=== PATIENT | female | born 1940 | race Caucasian/White ===

== ENCOUNTER 2016-10-17 17:22 | Emergency (ER) | payer MEDICARE ==
[~2016-10-17] VITALS: Ht 154.9 cm; Wt 77.3 kg
[~2016-10-17 17:22] MED LIST: ALTACE 10MG TAB10 MG PO; ALTACE10 MG PO; ANTIVERT 25MG25 MG PO; ARMOUR THYROID90 MG PO; ASPIRIN 32325 MG/TAB PO; BP MED; BYSTOLIC10 MG PO; KEPPRA 500MG500 MG PO; LEVEMIR100 U/ML SC; LIPITOR20 MG PO; LOPRESSOR 550 MG/TAB PO; NEXIUM 20MG CAP20 MG PO; NORCO 325 MG-51 TAB PO; NORVASC 10MG10 MG PO; [UNRECOGNIZED DRUG - OTHER]
[2016-10-17 17:36] VITALS: TEMP 99.2
[2016-10-17 18:45] LABS: BASO # 0.1 (0.0-0.2); BASO % 1.1 % (0.0-2.0); EOS # 0.4 (0.0-0.7); EOS % 3.9 % (0-4.0); GRAN # 5.6 (1.4-6.5); GRAN % 49.7 % (42.2-75.2); HEMATOCRIT 44.5 % (37.0-47.0); HEMOGLOBIN 15.2 g/dl (12.5-16.0); LYMPH % 35.4 % (20.0-51.0); MEAN CELL VOLUME 89 fl (80.0-100.0); MEAN CORPUSCULAR HEMOGLOBIN 31 pg (27.0-31.0); MEAN CORPUSCULAR HGB CONC 34 g/dl (33.0-37.0); MEAN PLATELET VOLUME 10.6 fl (7.4-10.4); MONO # 1.1 (0.1-0.6); MONO % 9.7 % (1.7-9.3); PLATELET COUNT 288 K/mm3 (130-400); RED BLOOD COUNT 4.98 M/mm3 (4.10-5.30); REDCELL DISTRIBUTION WIDTH-CV 14.1 % (11.5-14.5); WHITE BLOOD COUNT 11.2 K/mm3 (4.8-10.8)
[2016-10-17 18:49] LABS: ADJUSTED CALCIUM 9.3 mg/dL (8.4-10.2); ALBUMIN 3.8 gm/dL (3.5-5.0); BILIRUBIN,TOTAL 0.5 mg/dL (0.0-1.0); C-REACTIVE PROTEIN 1.2 mg/dL (0.0-0.9); CALCIUM 9.1 mg/dL (8.4-10.2); CREATININE, serum 0.58 mg/dL (0.52-1.25); POTASSIUM 3.6 mmol/L (3.4-5.0); TOTAL PROTEIN 7.3 gm/dL (6.4-8.2)
[2016-10-17 19:07] LABS: ERYTHROCYTE SEDIMENTATION RATE 4 mm/hr (0-30)
[2016-10-17 19:44] VITALS: BP 135/72; PULSE 80
== END 2016-10-17 19:45 | disposition home or self-care (01) ==
LOC: COL.ER 17:22
PROVIDERS: Emergency Medicine
DX: R51 Headache (principal); E11.9 Type 2 diabetes mellitus without complications; I10 Essential (primary) hypertension; Z86.73 Personal history of transient ischemic attack (TIA), and cerebral infarction without residual deficits; Z79.4 Long term (current) use of insulin

== ENCOUNTER 2017-08-31 11:06 | Inpatient (IN) | payer MEDICARE ==
[~2017-08-31] VITALS: Ht 154.9 cm; Wt 78.9 kg
[2017-08-31] MEDS ORDERED: GLUCOTROL10 MG PO (11:40)
[2017-08-31] MEDS ORDERED: ALTACE 10MG TAB10 MG PO (11:41)
[2017-08-31] MEDS ORDERED: ASPIRIN 81M81 MG/TA2 PO (11:42)
[2017-08-31 12:23] LABS: BASO # 0.1 (0.0-0.2); BASO % 0.6 % (0.0-2.0); GRAN # 5.9 (1.4-6.5); GRAN % 67.2 % (42.2-75.2); HEMATOCRIT 51.5 % (37.0-47.0); HEMOGLOBIN 17.4 g/dl (12.5-16.0); LYMPH # 1.5 (1.2-3.4); MEAN CELL VOLUME 89 fl (80.0-100.0); MEAN CORPUSCULAR HEMOGLOBIN 30 pg (27.0-31.0); MEAN CORPUSCULAR HGB CONC 34 g/dl (33.0-37.0); MEAN PLATELET VOLUME 10.5 fl (7.4-10.4); MONO # 1.3 (0.1-0.6); PLATELET COUNT 206 K/mm3 (130-400); RED BLOOD COUNT 5.76 M/mm3 (4.10-5.30); REDCELL DISTRIBUTION WIDTH-CV 14.4 % (11.5-14.5)
[2017-08-31 12:34] LABS: ALBUMIN 4.2 gm/dL (3.5-5.0); BILIRUBIN,TOTAL 0.5 mg/dL (0.0-1.0); CALCIUM 8.7 mg/dL (8.4-10.2); CREATININE, serum 0.7 mg/dL (0.52-1.25); POTASSIUM 3.9 mmol/L (3.4-5.0); TOTAL PROTEIN 7.8 gm/dL (6.4-8.2)
[2017-08-31 13:08] LABS: COLLECTION METHOD CATHETER
[2017-08-31 13:22] LABS: MUCOUS Present /lpf; PH 5 (5-8); SQUAMOUS EPITHELIAL 0-2 /hpf; URINE APPEARANCE Hazy; URINE BACTERIA Rare /hpf; URINE BILIRUBIN Negative (NEGATIVE); URINE BLOOD 1+ (NEGATIVE); URINE COLOR Yellow; URINE GLUCOSE 3+ (NEGATIVE); URINE KETONE 1+ (NEGATIVE); URINE LEUKOCYTE ESTERASE Trace (NEGATIVE); URINE NITRATE Negative (NEGATIVE); URINE PROTEIN(semi-quant) 1+ (NEGATIVE); URINE RBC 0-2 /hpf; URINE UROBILINOGEN Negative (NEGATIVE)
[2017-08-31 16:52] VITALS: BP 153/82; PULSE 84; TEMP 98.6
[2017-08-31] MEDS ORDERED: ARMOUR THYROID60 MG PO (19:34)
[2017-08-31 20:11] VITALS: BP 133/54; PULSE 85; TEMP 99.2
[2017-08-31 23:51] VITALS: BP 151/76; PULSE 88
[2017-09-01 04:17] VITALS: BP 137/62; PULSE 84; TEMP 98.5
[2017-09-01 06:28] LABS: BASO % 0.6 % (0.0-2.0); EOS % 0.2 % (0-4.0); GRAN # 2.6 (1.4-6.5); GRAN % 50.9 % (42.2-75.2); HEMATOCRIT 44.2 % (37.0-47.0); LYMPH # 1.8 (1.2-3.4); MEAN CELL VOLUME 90 fl (80.0-100.0); MEAN CORPUSCULAR HEMOGLOBIN 30 pg (27.0-31.0); MEAN CORPUSCULAR HGB CONC 33 g/dl (33.0-37.0); MEAN PLATELET VOLUME 10.7 fl (7.4-10.4); MONO # 0.7 (0.1-0.6); MONO % 14.1 % (1.7-9.3); PLATELET COUNT 203 K/mm3 (130-400); RED BLOOD COUNT 4.89 M/mm3 (4.10-5.30); REDCELL DISTRIBUTION WIDTH-CV 14.3 % (11.5-14.5)
[2017-09-01 06:32] LABS: HEMOGLOBIN 14.7 g/dl (12.5-16.0)
[2017-09-01 06:40] LABS: ALBUMIN 3.4 gm/dL (3.5-5.0); BILIRUBIN,TOTAL 0.2 mg/dL (0.0-1.0); CALCIUM 7.7 mg/dL (8.4-10.2); CREATININE, serum 0.59 mg/dL (0.52-1.25); POTASSIUM 3.2 mmol/L (3.4-5.0); TOTAL PROTEIN 6.5 gm/dL (6.4-8.2)
[2017-09-01 07:56] VITALS: BP 135/71; PULSE 86; TEMP 98.9
[2017-09-01 12:49] VITALS: BP 147/79; PULSE 87; TEMP 98.8
[2017-09-01 16:11] VITALS: BP 137/66; BP 146/93; BP 94/51; PULSE 94; PULSE 97; PULSE 98; TEMP 98.4; TEMP 98.8
[2017-09-01 20:00] VITALS: BP 156/88; PULSE 87; TEMP 98.9
[2017-09-02 00:30] VITALS: BP 144/66; PULSE 82; TEMP 97.9
[2017-09-02 03:58] VITALS: BP 146/75; PULSE 79; TEMP 98.4
[2017-09-02 07:52] VITALS: BP 136/70; PULSE 80; TEMP 99
[2017-09-02 07:53] LABS: BASO % 0.4 % (0.0-2.0); EOS % 0.4 % (0-4.0); GRAN # 1.6 (1.4-6.5); GRAN % 35.5 % (42.2-75.2); HEMATOCRIT 46.1 % (37.0-47.0); HEMOGLOBIN 15.5 g/dl (12.5-16.0); LYMPH # 2.4 (1.2-3.4); LYMPH % 52.8 % (20.0-51.0); MEAN CELL VOLUME 89 fl (80.0-100.0); MEAN CORPUSCULAR HEMOGLOBIN 30 pg (27.0-31.0); MEAN CORPUSCULAR HGB CONC 34 g/dl (33.0-37.0); MEAN PLATELET VOLUME 10.4 fl (7.4-10.4); MONO # 0.5 (0.1-0.6); MONO % 10.7 % (1.7-9.3); PLATELET COUNT 218 K/mm3 (130-400); RED BLOOD COUNT 5.17 M/mm3 (4.10-5.30); REDCELL DISTRIBUTION WIDTH-CV 14.4 % (11.5-14.5)
[2017-09-02 08:04] LABS: CALCIUM 7.6 mg/dL (8.4-10.2); CREATININE, serum 0.56 mg/dL (0.52-1.25); MAGNESIUM 2.1 mg/dL (1.6-2.3); POTASSIUM 3.5 mmol/L (3.4-5.0)
[2017-09-02] MEDS ORDERED: CEFTIN 250250 MG/TAB PO (08:47)
[2017-09-02] MEDS ORDERED: TAMIFLU30 MG PO (08:48)
[2017-09-02 10:39] VITALS: BP 141/77
[2017-09-02 10:40] VITALS: BP 141/77; PULSE 86; TEMP 101.8
== END 2017-09-02 16:40 | disposition home health service (06) | DRG 641 ==
LOC: COL.ER 11:06 → MEDICAL 14:28
PROVIDERS: Emergency Medicine; Internal Medicine; Nurse Practitioner Family
DX: E86.0 Dehydration (principal); N39.0 Urinary tract infection, site not specified; R19.7 Diarrhea, unspecified; E87.6 Hypokalemia; E83.42 Hypomagnesemia; J10.2 Influenza due to other identified influenza virus with gastrointestinal manifestations; E11.9 Type 2 diabetes mellitus without complications; G30.9 Alzheimer's disease, unspecified; F02.80 Dementia in other diseases classified elsewhere, unspecified severity, without behavioral disturbance, psychotic disturbance, mood disturbance, and anxiety; I10 Essential (primary) hypertension; Z79.4 Long term (current) use of insulin; Z86.73 Personal history of transient ischemic attack (TIA), and cerebral infarction without residual deficits
CPT/HCPCS: 99222-AI; 99232-AI; G8978-GP; G8979-GP; G8987-GO; G8988-GO; J0696; J1650; J1815; J3475; J3480; J7030

== ENCOUNTER 2017-09-26 12:13 | Emergency (ER) | payer MEDICARE ==
[~2017-09-26] VITALS: Ht 154.9 cm; Wt 77.3 kg
[~2017-09-26 12:13] MED LIST changes: +ARMOUR THYROID60 MG PO; +ASPIRIN 81M81 MG/TA2 PO; +CEFTIN 250250 MG/TAB PO; +GLUCOTROL10 MG PO; +TAMIFLU30 MG PO
[2017-09-26 12:17] VITALS: TEMP 98.5
[2017-09-26 13:03] LABS: BASO # 0.1 (0.0-0.2); BASO % 0.6 % (0.0-2.0); EOS # 0.2 (0.0-0.7); EOS % 1.2 % (0-4.0); GRAN # 8.9 (1.4-6.5); GRAN % 69.6 % (42.2-75.2); HEMATOCRIT 45.3 % (37.0-47.0); HEMOGLOBIN 15.4 g/dl (12.5-16.0); LYMPH # 2.5 (1.2-3.4); LYMPH % 19.3 % (20.0-51.0); MEAN CELL VOLUME 88 fl (80.0-100.0); MEAN CORPUSCULAR HEMOGLOBIN 30 pg (27.0-31.0); MEAN CORPUSCULAR HGB CONC 34 g/dl (33.0-37.0); MEAN PLATELET VOLUME 10.9 fl (7.4-10.4); MONO # 1.2 (0.1-0.6); MONO % 9.1 % (1.7-9.3); PLATELET COUNT 214 K/mm3 (130-400); RED BLOOD COUNT 5.13 M/mm3 (4.10-5.30); REDCELL DISTRIBUTION WIDTH-CV 13.7 % (11.5-14.5)
[2017-09-26 13:10] LABS: COLLECTION METHOD CATHETER
[2017-09-26 13:23] LABS: PH 5 (5-8); SQUAMOUS EPITHELIAL None Seen /hpf; URINE APPEARANCE Cloudy; URINE BACTERIA None Seen /hpf; URINE BILIRUBIN Negative (NEGATIVE); URINE BLOOD 2+ (NEGATIVE); URINE COLOR Red; URINE GLUCOSE 1+ (NEGATIVE); URINE KETONE Negative (NEGATIVE); URINE LEUKOCYTE ESTERASE Negative (NEGATIVE); URINE NITRATE Negative (NEGATIVE); URINE PROTEIN(semi-quant) 2+ (NEGATIVE); URINE RBC >50 /hpf; URINE UROBILINOGEN Negative (NEGATIVE)
[2017-09-26 13:27] LABS: ANION GAP 14 mmol/L (7-16); BLOOD UREA NITROGEN 18 mg/dL (7-17); CALCIUM 9.1 mg/dL (8.4-10.2); CARBON DIOXIDE 25 mmol/L (22-30); CHLORIDE 103 mmol/L (98-107); CREATININE, serum 0.61 mg/dL (0.52-1.25); GLUCOSE 245 mg/dL (74-106); POTASSIUM 3.4 mmol/L (3.4-5.0); SODIUM 142 mmol/L (137-145)
[2017-09-26 13:50] LABS: ALANINE AMINOTRANSFERASE 20 U/L (9-52); ALKALINE PHOSPHATASE 94 U/L (50-136); AST,SGOT 20 U/L (15-37)
[2017-09-26] MEDS ORDERED: CIPRO 250MG TA250 MG PO (16:19)
[2017-09-26 16:29] VITALS: BP 140/66; PULSE 66
== END 2017-09-26 16:29 | disposition home or self-care (01) ==
LOC: COL.ER 12:13
PROVIDERS: Nurse Practitioner
DX: R31.9 Hematuria, unspecified (principal); I10 Essential (primary) hypertension; E11.9 Type 2 diabetes mellitus without complications; G30.9 Alzheimer's disease, unspecified; Z86.73 Personal history of transient ischemic attack (TIA), and cerebral infarction without residual deficits; Z88.2 Allergy status to sulfonamides; Z79.4 Long term (current) use of insulin; Z79.82 Long term (current) use of aspirin
CPT/HCPCS: Q9967

== ENCOUNTER 2017-10-29 08:50 | Day surgery (SDC) | payer MEDICARE ==
[~2017-10-29] VITALS: Ht 154.9 cm; Wt 75.7 kg
[~2017-10-29 08:50] MED LIST changes: +CIPRO 250MG TA250 MG PO
[2017-10-29] MEDS ORDERED: GENTLE LAXATIVE10 MG RC (10:03)
[2017-10-29] MEDS ORDERED: JANUVIA50 MG PO (10:04)
[2017-10-29] MEDS ORDERED: IMODIUM 2MG CAPS2 MG PO (10:04)
[2017-10-29] MEDS ORDERED: LEVEMIR100 U/ML SQ (10:05)
[2017-10-29] MEDS ORDERED: LIPITOR20 MG PO (10:05)
[2017-10-29] MEDS ORDERED: LOPRESSOR 550 MG/TAB PO (10:05)
[2017-10-29] MEDS ORDERED: NORVASC 10MG10 MG PO (10:06)
[2017-10-29] MEDS ORDERED: MILK OF MA400 MG/52 PO (10:06)
[2017-10-29] MEDS ORDERED: TYLENOL 325MG325 MG PO (10:06)
[2017-10-29 10:12] VITALS: BP 143/77; PULSE 66; TEMP 98.2
[2017-10-29 13:50] VITALS: BP 147/60; PULSE 72; TEMP 97.5
[2017-10-29 14:05] VITALS: BP 130/60; PULSE 69
[2017-10-29 14:20] VITALS: BP 138/65; PULSE 74
[2017-10-29 14:35] VITALS: BP 138/68; PULSE 74
[2017-10-29 15:05] VITALS: BP 149/71; PULSE 80
== END 2017-10-29 15:20 | disposition home or self-care (01) ==
LOC: SDCO 08:50
DX: N30.91 Cystitis, unspecified with hematuria (principal); E11.9 Type 2 diabetes mellitus without complications; Z79.84 Long term (current) use of oral hypoglycemic drugs; I10 Essential (primary) hypertension; Z79.4 Long term (current) use of insulin; Z86.73 Personal history of transient ischemic attack (TIA), and cerebral infarction without residual deficits; E03.9 Hypothyroidism, unspecified; Z79.899 Other long term (current) drug therapy; Z88.1 Allergy status to other antibiotic agents; G30.9 Alzheimer's disease, unspecified; F02.80 Dementia in other diseases classified elsewhere, unspecified severity, without behavioral disturbance, psychotic disturbance, mood disturbance, and anxiety; Z79.82 Long term (current) use of aspirin
CPT/HCPCS: J0690; J1100; J1885; J2405; J2704; J2765; J3010; J7030

== ENCOUNTER 2018-09-05 21:11 | Emergency (ER) | payer MEDICARE, MEDICAID ==
[~2018-09-05] VITALS: Ht 154.9 cm; Wt 90.9 kg
[~2018-09-05 21:11] MED LIST changes: +GENTLE LAXATIVE10 MG RC; +IMODIUM 2MG CAPS2 MG PO; +JANUVIA50 MG PO; +LEVEMIR100 U/ML SQ; +MILK OF MA400 MG/52 PO; +TYLENOL 325MG325 MG PO
[2018-09-05 21:12] VITALS: TEMP 98.1
[2018-09-05 21:56] LABS: COLLECTION METHOD CATHETER
[2018-09-05 22:09] LABS: MUCOUS Present /lpf; PH 5 (5-8); URINE APPEARANCE Clear; URINE BACTERIA Rare /hpf; URINE BILIRUBIN Negative (NEGATIVE); URINE BLOOD Negative (NEGATIVE); URINE COLOR Yellow; URINE GLUCOSE 1+ (NEGATIVE); URINE KETONE Trace (NEGATIVE); URINE LEUKOCYTE ESTERASE Negative (NEGATIVE); URINE NITRATE Negative (NEGATIVE); URINE PROTEIN(semi-quant) 2+ (NEGATIVE); URINE UROBILINOGEN Negative (NEGATIVE)
[2018-09-05 23:26] LABS: HEMATOCRIT 47.2 % (37.0-47.0); HEMOGLOBIN 15.7 g/dl (12.5-16.0); MEAN CELL VOLUME 88 fl (80.0-100.0); MEAN CORPUSCULAR HEMOGLOBIN 29 pg (27.0-31.0); MEAN CORPUSCULAR HGB CONC 33 g/dl (33.0-37.0); MEAN PLATELET VOLUME 10.1 fl (7.4-10.4); PLATELET COUNT 310 K/mm3 (130-400); RED BLOOD COUNT 5.37 M/mm3 (4.10-5.30); REDCELL DISTRIBUTION WIDTH-CV 15.5 % (11.5-14.5)
[2018-09-05 23:39] LABS: ALANINE AMINOTRANSFERASE 21 U/L (9-52); ALBUMIN 3.3 gm/dL (3.5-5.0); ALKALINE PHOSPHATASE 108 U/L (50-136); ANION GAP 8 mmol/L (7-16); AST,SGOT 17 U/L (15-37); BILIRUBIN,TOTAL 0.6 mg/dL (0.0-1.0); BLOOD UREA NITROGEN 19 mg/dL (7-17); C-REACTIVE PROTEIN 1.2 mg/dL (0.0-0.9); CALCIUM 7.9 mg/dL (8.4-10.2); CARBON DIOXIDE 22 mmol/L (22-30); CHLORIDE 108 mmol/L (98-107); CREATININE, serum 0.52 mg/dL (0.52-1.25); GLUCOSE 237 mg/dL (74-106); LIPASE 64 U/L (23-300); POTASSIUM 3.8 mmol/L (3.4-5.0); SODIUM 138 mmol/L (137-145); TOTAL PROTEIN 6.6 gm/dL (6.4-8.2)
[2018-09-05 23:52] LABS: TROPONIN-I < 0.012 ng/mL (0.000-0.035)
[2018-09-06] MEDS ORDERED: ZOFRAN ODT8 MG PO (01:46)
[2018-09-06 01:55] VITALS: BP 160/85; PULSE 87
[2018-09-06 05:52] LABS: BAND 18 % (0-10); BASOPHIL 1 % (0-2); EOSINOPHIL 1 % (0-4); LYMPHOCYTE 6 % (20.0-51.0); NEUTROPHILS 70 % (42.0-75.2); PLATELET ESTIMATE NORMAL (NORMAL)
[2018-09-06 05:53] LABS: ANISOCYTOSIS 1+; HYPOCHROMIA 1+
== END 2018-09-06 03:05 | disposition home or self-care (01) ==
LOC: COL.ER 21:11
PROVIDERS: Emergency Medicine
DX: R10.31 Right lower quadrant pain (principal); R10.32 Left lower quadrant pain; R11.2 Nausea with vomiting, unspecified; E11.9 Type 2 diabetes mellitus without complications; I10 Essential (primary) hypertension; E03.9 Hypothyroidism, unspecified; G40.909 Epilepsy, unspecified, not intractable, without status epilepticus; Z79.82 Long term (current) use of aspirin; Z79.4 Long term (current) use of insulin; Z86.73 Personal history of transient ischemic attack (TIA), and cerebral infarction without residual deficits
CPT/HCPCS: J2405; J3010; J7030; Q9967

== ENCOUNTER → 2019-05-05 | Outpatient (CLI) | payer MEDICARE, MEDICAID ==
[~2019-05-05] MED LIST changes: +ZOFRAN ODT8 MG PO
[2019-05-05 12:14] LABS: CALCIUM 9.5 mg/dL (8.4-10.2); CHOLESTEROL RISK RATIO 5.3; CREATININE, serum 0.82 (0.52-1.25); POTASSIUM 3.7 mmol/L (3.4-5.0)
[2019-05-05 12:45] LABS: THYROID STIMULATING HORMONE 0.449 uIU/mL (0.465-4.680)
== END ==
LOC: COL.LAB 11:06
PROVIDERS: Internal Medicine
DX: I10 Essential (primary) hypertension (principal); E78.2 Mixed hyperlipidemia; E03.9 Hypothyroidism, unspecified

== ENCOUNTER → 2020-02-04 | Outpatient (CLI) | payer MEDICARE, MEDICAID ==
[2020-02-04 13:08] LABS: BASO # 0.1 (0.0-0.2); BASO % 0.9 % (0.0-2.0); EOS # 0.3 (0.0-0.7); EOS % 2.5 % (0-4.0); GRAN # 7.7 (1.4-6.5); HEMATOCRIT 39.6 % (37.0-47.0); HEMOGLOBIN 13.1 g/dl (12.5-16.0); LYMPH # 1.7 (1.2-3.4); LYMPH % 16.1 % (20.0-51.0); MEAN CELL VOLUME 91 fl (80.0-100.0); MEAN CORPUSCULAR HEMOGLOBIN 30 pg (27.0-31.0); MEAN CORPUSCULAR HGB CONC 33 g/dl (33.0-37.0); MEAN PLATELET VOLUME 12.2 fl (7.4-10.4); MONO # 0.7 (0.1-0.6); MONO % 6.8 % (1.7-9.3); PLATELET COUNT 246 K/mm3 (130-400); RED BLOOD COUNT 4.37 M/mm3 (4.10-5.30); REDCELL DISTRIBUTION WIDTH-CV 14.9 % (11.5-14.5)
[2020-02-04 13:14] LABS: ANION GAP 11 mmol/L (7-16); BLOOD UREA NITROGEN 47 mg/dL (7-17); CALCIUM 8.8 mg/dL (8.4-10.2); CARBON DIOXIDE 26 mmol/L (22-30); CHLORIDE 97 mmol/L (98-107); GLUCOSE 190 mg/dL (74-106); SODIUM 134 mmol/L (137-145)
[2020-02-04 13:28] LABS: TROPONIN-I < 0.012 ng/mL (0.000-0.035)
[2020-02-04 13:33] LABS: ERYTHROCYTE SEDIMENTATION RATE 34 mm/hr (0-30)
[2020-02-04 22:17] LABS: COLLECTION METHOD CLEAN CATCH
[2020-02-04 22:24] LABS: MUCOUS Present /lpf; PH 5 (5-8); URINE APPEARANCE Cloudy; URINE BACTERIA Rare /hpf; URINE BILIRUBIN Negative (NEGATIVE); URINE BLOOD Negative (NEGATIVE); URINE COLOR Amber; URINE GLUCOSE Negative (NEGATIVE); URINE KETONE Negative (NEGATIVE); URINE LEUKOCYTE ESTERASE 1+ (NEGATIVE); URINE NITRATE Negative (NEGATIVE); URINE PROTEIN(semi-quant) Negative (NEGATIVE); URINE UROBILINOGEN Negative (NEGATIVE)
== END ==
LOC: ZCOL.LAB 10:35
PROVIDERS: Nurse Practitioner Family
DX: I10 Essential (primary) hypertension (principal); N39.0 Urinary tract infection, site not specified

== ENCOUNTER 2020-02-06 19:31 | Emergency (ER) | payer MEDICARE, MEDICAID ==
[~2020-02-06] VITALS: Ht 152.4 cm; Wt 84.1 kg
[2020-02-06 19:41] VITALS: TEMP 98.2
[2020-02-06 21:14] VITALS: BP 95/60; PULSE 71
== END 2020-02-06 21:14 | disposition home or self-care (01) ==
LOC: COL.ER 19:31
DX: S63.651A Sprain of metacarpophalangeal joint of left index finger, initial encounter (principal); E11.9 Type 2 diabetes mellitus without complications; I10 Essential (primary) hypertension; Z79.82 Long term (current) use of aspirin; Z79.4 Long term (current) use of insulin; Z86.73 Personal history of transient ischemic attack (TIA), and cerebral infarction without residual deficits; Z88.1 Allergy status to other antibiotic agents; Z88.2 Allergy status to sulfonamides; X58.XXXA Exposure to other specified factors, initial encounter

== ENCOUNTER → 2020-02-07 | Outpatient (CLI) | payer MEDICARE, MEDICAID ==
[2020-02-07 12:14] LABS: BASO # 0.1 (0.0-0.2); EOS # 0.5 (0.0-0.7); EOS % 5.2 % (0-4.0); GRAN # 6.9 (1.4-6.5); GRAN % 67.1 % (42.2-75.2); HEMATOCRIT 37.7 % (37.0-47.0); HEMOGLOBIN 12.6 g/dl (12.5-16.0); LYMPH # 1.8 (1.2-3.4); LYMPH % 17.3 % (20.0-51.0); MEAN CELL VOLUME 91 fl (80.0-100.0); MEAN CORPUSCULAR HEMOGLOBIN 30 pg (27.0-31.0); MEAN CORPUSCULAR HGB CONC 33 g/dl (33.0-37.0); MEAN PLATELET VOLUME 11.1 fl (7.4-10.4); MONO # 0.9 (0.1-0.6); MONO % 8.9 % (1.7-9.3); PLATELET COUNT 313 K/mm3 (130-400); RED BLOOD COUNT 4.15 M/mm3 (4.10-5.30); REDCELL DISTRIBUTION WIDTH-CV 14.8 % (11.5-14.5)
[2020-02-07 12:21] LABS: ALBUMIN 3.2 gm/dL (3.5-5.0); BILIRUBIN,TOTAL 0.6 mg/dL (0.0-1.0); CALCIUM 8.7 mg/dL (8.4-10.2); CREATININE, serum 1.86 (0.52-1.25); POTASSIUM 3.4 mmol/L (3.4-5.0); TOTAL PROTEIN 6.4 gm/dL (6.4-8.2)
== END ==
LOC: ZCOL.LAB 11:47
PROVIDERS: Internal Medicine
DX: E11.59 Type 2 diabetes mellitus with other circulatory complications (principal); I10 Essential (primary) hypertension

== ENCOUNTER → 2020-04-01 | Outpatient (CLI) | payer MEDICARE, MEDICAID | LOC: ZCOL.LAB 20:43 | DX: E11.59 Type 2 diabetes mellitus with other circulatory complications (principal) ==

== ENCOUNTER → 2020-05-02 | Outpatient (CLI) | payer MEDICARE, MEDICAID ==
[2020-05-02 09:47] LABS: CHOLESTEROL RISK RATIO 4.1
[2020-05-02 10:18] LABS: THYROID STIMULATING HORMONE 1.05 uIU/mL (0.465-4.680)
== END ==
LOC: ZCOL.LAB 07:45
PROVIDERS: Internal Medicine
DX: E11.59 Type 2 diabetes mellitus with other circulatory complications (principal); E03.9 Hypothyroidism, unspecified

== ENCOUNTER → 2020-05-30 | Outpatient (CLI) | payer MEDICARE, MEDICAID ==
[2020-05-30 19:05] LABS: COLLECTION METHOD CLEAN CATCH
[2020-05-30 19:19] LABS: PH 7 (5-8); SQUAMOUS EPITHELIAL 0-2 /hpf; URINE APPEARANCE Cloudy; URINE BACTERIA Occasional /hpf; URINE BILIRUBIN Negative (NEGATIVE); URINE BLOOD 3+ (NEGATIVE); URINE COLOR Yellow; URINE GLUCOSE Negative (NEGATIVE); URINE KETONE Negative (NEGATIVE); URINE LEUKOCYTE ESTERASE 3+ (NEGATIVE); URINE NITRATE Negative (NEGATIVE); URINE PROTEIN(semi-quant) 2+ (NEGATIVE); URINE RBC >50 /hpf; URINE UROBILINOGEN Negative (NEGATIVE); URINE WBC >50 /hpf
== END ==
LOC: ZCOL.LAB 18:54
PROVIDERS: Nurse Practitioner Family
DX: N39.0 Urinary tract infection, site not specified (principal)

== ENCOUNTER → 2021-11-19 | Outpatient (CLI) | payer MEDICARE, MEDICAID | LOC: MC.RAD 10:49 | DX: N64.59 Other signs and symptoms in breast (principal); N63.11 Unspecified lump in the right breast, upper outer quadrant ==

== ENCOUNTER → 2021-11-28 | Outpatient (CLI) | payer MEDICARE, MEDICAID | LOC: MC.RAD 09:56 | DX: N63.11 Unspecified lump in the right breast, upper outer quadrant (principal) | CPT/HCPCS: A4648 ==

== ENCOUNTER → 2021-12-20 | Outpatient (CLI) | payer MEDICARE, MEDICAID | LOC: COL.RAD 12:56 | DX: C50.411 Malignant neoplasm of upper-outer quadrant of right female breast (principal); K57.30 Diverticulosis of large intestine without perforation or abscess without bleeding; K44.9 Diaphragmatic hernia without obstruction or gangrene | CPT/HCPCS: Q9967 ==

== ENCOUNTER 2022-01-15 06:42 | Day surgery (SDC) | payer MEDICARE, MEDICAID ==
[2022-01-15] VITALS (10 sets, daily range): BP systolic 115–169; BP diastolic 44–69; PULSE 60–78; TEMP 97.3–98.5
[~2022-01-15] VITALS: Ht 184 cm; Wt 83.7 kg
[2022-01-15] MEDS ORDERED: ZYLOPRIM 300MG300 MG PO (08:14)
[2022-01-15] MEDS ORDERED: EMERGEN-C 1,01000 MG PO (08:15)
[2022-01-15] MEDS ORDERED: LEVEMIR100 U/ML SQ (08:16)
[2022-01-15] MEDS ORDERED: TIROSINT50 MC1 PO (08:17)
[2022-01-15] MEDS ORDERED: NOVOLIN N100 UNIT/1 SQ (08:18)
[2022-01-15] MEDS ORDERED: ALTACE 10MG TAB10 MG PO (08:19)
[2022-01-15] MEDS ORDERED: ZOLOFT 25MG25 MG PO (08:20)
[2022-01-15] MEDS ORDERED: NORVASC 5MG5 MG/TAB PO (08:21)
[2022-01-15] MEDS ORDERED: GLUCOTROL 5M5 MG/TAB PO (08:22)
[2022-01-15] MEDS ORDERED: EXPECTORANT DM120 ML (08:23)
[2022-01-15] MEDS ORDERED: MIRALAX PA17 GM/Dose PO (08:24)
[2022-01-15] MEDS ORDERED: MYLANTA 150 ML150 M1 PO (08:25)
[2022-01-15] MEDS ORDERED: NYAMYC100000 U/G TP (08:27)
--- NOTE | 2022-01-15 10:25 | NUR ---
1025 PATIENT RETURNS TO ROOM 1 FROM PACU. VERY DROWSY. OPENS EYES SLIGHTLY TO VERBAL STIMULATION. RESP CLEAR, SPONTANEOUS. VITAL SIGNS OBTAINED. O2 APPLIED AT 2L/NC. HOB ELEVATED 40 DEGREES. DAUGHTERS IN ROOM. DRESSING RIGHT BREAST CLEAN DRY AND INTACT. AXILLA AREA SOFT WITH GENTLE PALPATION. 1105 PATIENT REMAINS VERY DROWSY. RESPONDS TO VERBAL STIMULI BY OPENING EYES. NO VERBALIZATION. FAMILY REMAINS IN ROOM VITAL SIGNS STABLE. O2 PER N/C. 1135 PATIENT BECOMING MORE RESPONSIVE. OPENS EYES TO VERBAL STIMULI. DOES NOT VERBALIZE. ONLY BRIEF EYE CONTACT. 1205 PATIENT WITH CONTINUED DECREASING DROWSINESS/INCREASING RESPONSIVENESS. DAUGHTERS REMAIN IN ROOM,. 1230 AROUSES EASILY TO VERBAL STIMULI. RESP CLEAR, SPONTANEOUS. O2 PER N/C REMOVED. PATIENT IS COOPERATIVE, YET SOMEWHAT CONFUSED/DISORIENTED SHE WAS PREOPERATIVELY. CONVERSES WITH DAUGHTERS DENIES PAIN. 1300 TOLERATES PO SODA AND MUFFIN WITHOUT PATIENT SMILES, CONVERSES. DENIES PAIN. RIGHT BREAST DRESSING REMAINS CLEAN DRY AND INTACT. 1325 B JAYESH COMER NOTIFIED OF FSBS READING. NO NEW ORDERS. 1330 PATIENT DRESSES WITH ASSISTANCE OF DAUGHTERS SOME WITH DAUGHTERS
== END 2022-01-15 13:35 | disposition home or self-care (01) ==
LOC: SDCO 06:42
DX: C50.411 Malignant neoplasm of upper-outer quadrant of right female breast (principal); D24.1 Benign neoplasm of right breast; Z17.0 Estrogen receptor positive status [ER+]; E66.9 Obesity, unspecified; E11.9 Type 2 diabetes mellitus without complications; F01.50 Vascular dementia, unspecified severity, without behavioral disturbance, psychotic disturbance, mood disturbance, and anxiety; Z68.34 Body mass index [BMI] 34.0-34.9, adult; Z79.4 Long term (current) use of insulin; Z79.84 Long term (current) use of oral hypoglycemic drugs; Z79.82 Long term (current) use of aspirin
CPT/HCPCS: A4648; J0690; J1100; J2405; J2704; J3010; J7120

== ENCOUNTER → 2022-09-01 | Outpatient (CLI) | payer MEDICARE, MEDICAID ==
[~2022-09-01] MED LIST changes: +EMERGEN-C 1,01000 MG PO; +EXPECTORANT DM120 ML; +GLUCOTROL 5M5 MG/TAB PO; +MIRALAX PA17 GM/Dose PO; +MYLANTA 150 ML150 M1 PO; +NORVASC 5MG5 MG/TAB PO; +NOVOLIN N100 UNIT/1 SQ; +NYAMYC100000 U/G TP; +TIROSINT50 MC1 PO; +ZOLOFT 25MG25 MG PO; +ZYLOPRIM 300MG300 MG PO
[2022-09-01 22:58] LABS: COLLECTION METHOD CLEAN CATCH
[2022-09-01 23:13] LABS: URINE APPEARANCE Turbid (CLEAR/HAZY); URINE BLOOD 3+ (NEGATIVE); URINE COLOR Yellow (YELLOW); URINE GLUCOSE Negative (NEGATIVE); URINE KETONE 1+ (NEGATIVE); URINE NITRATE Negative (NEGATIVE); URINE PROTEIN(semi-quant) 3+ (NEGATIVE); URINE UROBILINOGEN 0.2 E.U/dL (0.2-1.0)
[2022-09-01 23:14] LABS: MUCOUS Present (NOT PRESENT); URINE BACTERIA None Seen /hpf (NONE SEEN); URINE RBC >50 /hpf (0-2); URINE WBC >50 /hpf (0-2)
== END ==
LOC: ZCOL.LAB 22:48
PROVIDERS: Family Medicine
DX: R30.0 Dysuria (principal)

== ENCOUNTER 2023-06-10 19:27 | Inpatient (IN) | payer MEDICARE, MEDICAID ==
[~2023-06-10] VITALS: Ht 162.6 cm; Wt 81.8 kg
[2023-06-10 21:06] LABS: ALBUMIN 3.2 gm/dL (3.4-4.8); BILIRUBIN,TOTAL 0.2 mg/dL (0.2-1.2); CALCIUM 8.6 mg/dL (8.4-10.2); CREATININE, serum 1.31 mg/dL (0.57-1.11); POTASSIUM 4.4 mmol/L (3.5-4.5); TOTAL PROTEIN 6.9 gm/dL (6.2-8.1)
[2023-06-10 21:34] LABS: BASO # 0.1 K/mm3 (0.0-0.2); BASO % 0.6 % (0.0-2.0); EOS # 0.1 K/mm3 (0.0-0.7); EOS % 0.8 % (0.0-4.0); GRAN # 13.1 K/mm3 (1.4-6.5); GRAN % 76.4 % (42.2-75.2); HEMOGLOBIN 10.2 g/dl (12.5-16.0); LYMPH # 2.6 K/mm3 (1.2-3.4); LYMPH % 15.1 % (20.0-51.0); MEAN CELL VOLUME 79 fl (80.0-100.0); MEAN CORPUSCULAR HEMOGLOBIN 24 pg (27-31); MEAN CORPUSCULAR HGB CONC 31 g/dl (33.0-37.0); MEAN PLATELET VOLUME 10.2 fl (7.4-10.4); MONO # 1.1 K/mm3 (0.1-0.6); MONO % 6.7 % (1.7-9.3); PLATELET COUNT 370 K/mm3 (130-400); RED BLOOD COUNT 4.19 M/mm3 (4.10-5.30); REDCELL DISTRIBUTION WIDTH-CV 18.6 % (11.5-14.5)
[2023-06-10 21:39] LABS: COLLECTION METHOD CATHETER
[2023-06-10 22:06] LABS: PH 5.5 (5.0-8.5); URINE APPEARANCE Clear (CLEAR/HAZY); URINE BLOOD Negative (NEGATIVE); URINE COLOR Yellow (YELLOW); URINE GLUCOSE TRACE (NEGATIVE); URINE KETONE TRACE (NEGATIVE); URINE NITRATE Negative (NEGATIVE); URINE PROTEIN(semi-quant) TRACE (NEGATIVE); URINE UROBILINOGEN 0.2 E.U/dL (0.2-1.0)
[2023-06-10 22:07] LABS: URINE BACTERIA None Seen /hpf (NONE SEEN); URINE RBC 0-2 /hpf (0-2)
[2023-06-11] VITALS (14 sets, daily range): BP systolic 116–175; BP diastolic 58–94; PULSE 61–74; TEMP 97.4–98.3
[2023-06-11 00:32] LABS: TSH w REFLEX 4.365 uIU/mL (0.350-4.940)
--- NOTE | 2023-06-11 01:15 | NUR ---
REPORT RECIEVED FROM DOUGLAS LARES IN ER AT 0115. INFORMED THAT IV WAS BEING OBTAINED THEN PATIENT WOULD BE BROUGHT UP.
--- NOTE | 2023-06-11 01:45 | NUR ---
PATIENT ARRIVED TO ROOM #354 VIA STRETCHER. TELEMETRY INTACT. INT TO LEFT WRIST INTACT WITH NS INFUSING VIA GRATVITY. PATIENT ASSISTED TO BED WITH BACK BOARD. PATIENT TOLERATED WELL. ADMISSION INFORMATION OBTAINED FROM DAUGHTER ANYA POWELL. DAUGHTER STATED THAT SHE HAD TALKED TO HER SISTER THAT IS PATIENT'S POA AND THEY WOULD LIKE THEIR MOTHER TO BE A FULL CODE. INITAL ASSESSMENT COMPLETED AT THIS TIME. PATIENT TOLERATED WELL. NS TRANSFERED TO IV PUMP. YELLOW GOWN AND YELLOW SOCKS APPLIED. ALL NEEDS MET. BED IN LOW POSITION WITH WHEELS LOCKED WITH RAILS UP X3 AND CALL LIGHT WITHIN REACH. BED ALARM ON.
[2023-06-11] MEDS ORDERED: NOVOLOG FLEX100 U/ML SQ (01:55)
[2023-06-11] MEDS ORDERED: GLUTOSE 1540% PO (01:59)
[2023-06-11] MEDS ORDERED: TAMOXIFEN CITRA20 MG PO (01:59)
--- NOTE | 2023-06-11 06:30 | NUR ---
PATIENT RESTED AT INTERVALS WITH NO ACUTE DISTRESS NOTED. INT TO LEFT WRIST INTACT WITH NS INFUSING WITH NO COMPLICATIONS NOTED. CARDIOLOGY AND GI CONTSULTS CALLED. PATIENT PENDING ECHO. SCD'S ON BILATERAL LOWER EXTERMITIES. OCCULT STOOL POSITIVE FOR BLOOD. PATIENT HAD ORTHOSTATIC BLOOD PRESSURES DONE IN ER WHICH SHOWED ORTHOSTATIC HYPOTENSION. ALL NEEDS MET. BED IN LOW POSITION WITH WHEELS LOCKED WITH RAILS UP X3 AND CALL LIGTH WITHIN REACH. BED ALARM ON.
[2023-06-11 09:06] LABS: BASO # 0.1 K/mm3 (0.0-0.2); BASO % 0.6 % (0.0-2.0); EOS # 0.2 K/mm3 (0.0-0.7); EOS % 1.6 % (0.0-4.0); GRAN # 9.7 K/mm3 (1.4-6.5); GRAN % 68.2 % (42.2-75.2); LYMPH # 3.1 K/mm3 (1.2-3.4); LYMPH % 22.1 % (20.0-51.0); MEAN CELL VOLUME 79 fl (80.0-100.0); MEAN CORPUSCULAR HGB CONC 30 g/dl (33.0-37.0); MEAN PLATELET VOLUME 10.7 fl (7.4-10.4); MONO % 7.1 % (1.7-9.3); PLATELET COUNT 283 K/mm3 (130-400); REDCELL DISTRIBUTION WIDTH-CV 18.4 % (11.5-14.5)
[2023-06-11 09:12] LABS: HEMATOCRIT 27.8 % (37.0-47.0); HEMOGLOBIN 8.4 g/dl (12.5-16.0); MEAN CORPUSCULAR HEMOGLOBIN 24 pg (27-31)
[2023-06-11 09:21] LABS: CALCIUM 8.2 mg/dL (8.4-10.2); CREATININE, serum 0.9 mg/dL (0.57-1.11); POTASSIUM 3.7 mmol/L (3.5-4.5)
--- NOTE | 2023-06-11 10:48 | NUR ---
Initial visit; Patient and her daughter thanked Returned Case Inspector for looking in on her. Patient came in last night unresponsive but states today she is doing ok. Naila's daughter states she is having tests to discern the problem and was thankful for Returned Case Inspector to keep her in prayer.
--- NOTE | 2023-06-11 14:36 | NUR ---
Patient is back to the room, alert, starting post vs.
--- NOTE | 2023-06-11 21:49 | NUR ---
Patient assessed around 2009. Alert and oriented to self only. Has dementia. Denies pain and discomfort, and no outward s/sx of pain or discomfort noted at this time, such as facial grimacing and moaning. PICC to RUE with IV fluids running per orders. Received IV ABX per orders. Respirations even and unlabored. LS CTA. HRR. Telemetry in place. BSAx4. In bed with call light within reach. High fall risk precautions in place. Bed alarm on.
[2023-06-12 01:41] VITALS: BP_SYST 122
[2023-06-12 03:20] VITALS: BP 137/63; PULSE 62; TEMP 97.5
--- NOTE | 2023-06-12 05:49 | NUR ---
Around 0100, PCT requested assistance with patient by this nurse. Patient pulling off telemetry, pulled out IV to left forearm, had been incontinent of bowel and bladder and not following directions to get into the bathroom so that she could be cleaned and linens changed. This nurse and PCT able to work together to get patient to bathroom, cleaned, and changed. Incontinent of bowel, but not able to obtain GI panel. Linens changed. Patient ambulated to sit on couch/bench. Aggitated when staff trying to redirect to either recliner or bed. Able to get patient to lay back in bed after about 20 minutes. Did not put telemetry back in place, as patient would get agitated when trying. data center technician notified that monitor was not connected to patient. This nuse placed patient back on telemetry around 0300. This nurse was not notified when patient pulled telemetry off, but saw that monitor was not reading correctly around 0335. This nurse called NILESH Travis and asked if telemetry could be discontinued and updated on patient pulling it off and being agitated. Ok to leave off for now. This nurse went into room, and patient had pulled out PICC from RUE. PICC line was intact, at 38 cm chicho. No bleeding to site. Covered with gauze and tegaderm. Called and updated Angy. Due to plan for patient to D/C today, and patient being hard stick, ok to leave IV out. Asked about 0600 Zosyn, and Angy stated ok to hold this morning, and hospitalist can change to PO ABX in the morning. Telemetry updated on plan to keep off telemetry for now. Patient in bed with call light within reach. High fall risk precautions in place. Bed alarm on.
--- NOTE | 2023-06-12 07:00 | NUR ---
patient removed picc line last night per shift report. no picc to assess.
[2023-06-12 07:12] VITALS: BP 129/87; PULSE 68; TEMP 97.6
[2023-06-12 08:28] LABS: BASO # 0.1 K/mm3 (0.0-0.2); BASO % 0.7 % (0.0-2.0); EOS # 0.4 K/mm3 (0.0-0.7); EOS % 3.3 % (0.0-4.0); GRAN # 7.8 K/mm3 (1.4-6.5); GRAN % 59.9 % (42.2-75.2); LYMPH # 3.7 K/mm3 (1.2-3.4); LYMPH % 28.8 % (20.0-51.0); MEAN CELL VOLUME 79 fl (80.0-100.0); MEAN CORPUSCULAR HGB CONC 30 g/dl (33.0-37.0); MEAN PLATELET VOLUME 10.4 fl (7.4-10.4); MONO # 0.9 K/mm3 (0.1-0.6); MONO % 6.9 % (1.7-9.3); PLATELET COUNT 297 K/mm3 (130-400); RED BLOOD COUNT 3.52 M/mm3 (4.10-5.30); REDCELL DISTRIBUTION WIDTH-CV 18.5 % (11.5-14.5)
[2023-06-12 08:33] LABS: HEMATOCRIT 27.8 % (37.0-47.0); HEMOGLOBIN 8.3 g/dl (12.5-16.0); MEAN CORPUSCULAR HEMOGLOBIN 24 pg (27-31)
[2023-06-12 08:46] LABS: CREATININE, serum 0.78 mg/dL (0.57-1.11); POTASSIUM 3.1 mmol/L (3.5-4.5)
--- NOTE | 2023-06-12 08:50 | NUR ---
PATIENT A;ERT AND ORIENTED X4. PATIENT REPORTS PAIN OF 2/ ON LEFT FLANK SIDE. PATIENT REPORTS HAVING HEMATURIA AND VOIDING WELL. NO PAIN WHEN VOIDING. PATIENT EXPRESSES RIKA NAUSEAUS AND STILL NOT HAVING ALOT OF APPETITE. CALL LIGHT WITHIN REACH.BED AT LOWEST POSITION.
[2023-06-12 09:00] VITALS: BP_SYST 145
--- NOTE | 2023-06-12 09:56 | NUR ---
SPOKE WITH SIMBA LARES WITH CARDIOLOGY REGARDING IV ACCESS AND CONSENT WITH PTS DPOA. NO NEED FOR IV ACCESS FOR LOOP RECORDER, AND WILL CALL PTS DAUGHTER PRIOR TO PROCEDURE.
[2023-06-12 11:06] VITALS: BP 145/59; PULSE 65; TEMP 98.3
[2023-06-12] MEDS ORDERED: CEPHALEXIN500 M1 PO (12:32)
[2023-06-12] MEDS ORDERED: PROTONIX 40MG T40 MG PO (12:35)
[2023-06-12] MEDS ORDERED: NOVOLOG FLEX100 U/ML SQ (12:36)
[2023-06-12 13:00] VITALS: BP_SYST 145
--- NOTE | 2023-06-12 14:15 | NUR ---
PATIENT WAS EXPRESSING BEING TIRED MOST OF THE DAY. PATIENT FORGETFUL AND CONFUSED MOST OF THE TIME. PATIENT GLUCOSE LEVEL WAS LOW THIS MORNING. HYPOGLYCEMIC MEDICATION GIVEN PER EMAR. PATIENT GLUCOSE WAS NO LONGER LOW AFTER THE DOSE. PATIENT DID NOT HAVE GOOD APPETITE TODAY. PATIENT HAD A LOOP RECORDER IMPLANTATION TODAY, DRESSING CLEAN INTACT. PATIENT WAS HAD NAUSEA EPISODE PRIOR TO LEAVING. SHE HAD PHLEB LOOKING COMING FROM HER MOUTH. LET THE ELIGIBILITY WORKER KNOW. AND ALSO THE NURSE WHO I GAVE REPORT TO AT [facility].
--- NOTE | 2023-06-12 14:16 | NUR ---
THERESA did not complete an intake on this pt. She was informed pt will be discharging on day one. Rd from [facility] called and informed THERESA of the discharge and requested orders and updates. THERESA faxed these. Rd arranged for transport around 2:30pm. THERESA informed RN of the transport time. Discharge Plan: [facility] 2:30PM
== END 2023-06-12 14:35 | DRG 281 ==
LOC: COL.ER 19:27 → MEDICAL 23:51
PROVIDERS: Family Medicine; Internal Medicine; Nurse Practitioner Family; ADMIT Hospitalist
PROC: 02HV33Z Insertion of Infusion Device into Superior Vena Cava, Percutaneous Approach (ICD-10-PCS; principal; 2023-06-10)
PROC: 0DB68ZX Excision of Stomach, Via Natural or Artificial Opening Endoscopic, Diagnostic (ICD-10-PCS; 2023-06-10)
DX: I95.1 Orthostatic hypotension (principal); I21.A1 Myocardial infarction type 2; G40.109 Localization-related (focal) (partial) symptomatic epilepsy and epileptic syndromes with simple partial seizures, not intractable, without status epilepticus; R65.10 Systemic inflammatory response syndrome (SIRS) of non-infectious origin without acute organ dysfunction; N17.9 Acute kidney failure, unspecified; Z11.52 Encounter for screening for COVID-19; K52.9 Noninfective gastroenteritis and colitis, unspecified; D64.9 Anemia, unspecified; K44.9 Diaphragmatic hernia without obstruction or gangrene; I10 Essential (primary) hypertension; E78.5 Hyperlipidemia, unspecified; Z86.73 Personal history of transient ischemic attack (TIA), and cerebral infarction without residual deficits; F01.50 Vascular dementia, unspecified severity, without behavioral disturbance, psychotic disturbance, mood disturbance, and anxiety; E11.649 Type 2 diabetes mellitus with hypoglycemia without coma; Z79.4 Long term (current) use of insulin; E03.9 Hypothyroidism, unspecified; F32.A Depression, unspecified; C50.911 Malignant neoplasm of unspecified site of right female breast; K25.9 Gastric ulcer, unspecified as acute or chronic, without hemorrhage or perforation
CPT/HCPCS: C1751; C9113; J1815; J2543; J2704; J7030; Q9967

== ENCOUNTER → 2023-07-25 | Outpatient (CLI) | payer MEDICARE, MEDICAID ==
[~2023-07-25] MED LIST changes: +CEPHALEXIN500 M1 PO; +GLUTOSE 1540% PO; +NOVOLOG FLEX100 U/ML SQ; +PROTONIX 40MG T40 MG PO; +TAMOXIFEN CITRA20 MG PO
[2023-07-25 03:17] LABS: COLLECTION METHOD CLEAN CATCH
[2023-07-25 03:42] LABS: URINE APPEARANCE Turbid (CLEAR/HAZY); URINE BLOOD 1+ (NEGATIVE); URINE COLOR Yellow (YELLOW); URINE GLUCOSE Negative (NEGATIVE); URINE KETONE Negative (NEGATIVE); URINE NITRATE Negative (NEGATIVE); URINE PROTEIN(semi-quant) 2+ (NEGATIVE); URINE UROBILINOGEN 0.2 E.U/dL (0.2-1.0)
[2023-07-25 03:43] LABS: URINE BACTERIA Many /hpf (NONE SEEN)
== END ==
LOC: ZCOL.LAB 01:16
PROVIDERS: Internal Medicine
DX: R39.0 Extravasation of urine (principal)

== ENCOUNTER → 2023-10-23 | Outpatient (REF) | payer MEDICARE, MEDICAID ==
[2023-10-23 17:29] LABS: ALBUMIN 2.9 g/dL (3.4-4.8); BILIRUBIN,TOTAL 0.4 mg/dL (0.2-1.2); CALCIUM 8.3 mg/dL (8.4-10.2); CREATININE, serum 0.76 mg/dL (0.57-1.11); POTASSIUM 4.5 mEq/L (3.5-4.5); TOTAL PROTEIN 5.8 g/dl (6.2-8.1)
[2023-10-23 17:30] LABS: BASO # 0.1 K/mm3 (0.0-0.2); EOS # 0.4 K/mm3 (0.0-0.7); GRAN # 5.8 K/mm3 (1.4-6.5); GRAN % 55.2 % (42.2-75.2); HEMATOCRIT 33.2 % (37.0-47.0); HEMOGLOBIN 10.1 g/dl (12.5-16.0); LYMPH # 3.4 K/mm3 (1.2-3.4); LYMPH % 31.8 % (20.0-51.0); MEAN CELL VOLUME 80 fl (80.0-100.0); MEAN CORPUSCULAR HEMOGLOBIN 24 pg (27-31); MEAN CORPUSCULAR HGB CONC 30 g/dl (33.0-37.0); MONO # 0.8 K/mm3 (0.1-0.6); MONO % 7.7 % (1.7-9.3); PLATELET COUNT 323 K/mm3 (130-400); RED BLOOD COUNT 4.15 M/mm3 (4.10-5.30); REDCELL DISTRIBUTION WIDTH-CV 23.5 % (11.5-14.5)
== END ==
LOC: ZCOL.LAB 16:20
PROVIDERS: Internal Medicine
DX: R53.83 Other fatigue (principal)

== ENCOUNTER → 2024-04-02 | Outpatient (REF) | payer MEDICARE, MEDICAID ==
[2024-04-02 14:29] LABS: ALBUMIN 3.1 g/dL (3.4-4.8); BILIRUBIN,TOTAL 0.4 mg/dL (0.2-1.2); CALCIUM 8.8 mg/dL (8.4-10.2); CHOLESTEROL RISK RATIO 3.9; CREATININE, serum 0.74 mg/dL (0.57-1.11); POTASSIUM 4.8 mEq/L (3.5-4.5); TOTAL PROTEIN 6.3 g/dl (6.2-8.1)
== END ==
LOC: ZCOL.LAB 11:59
PROVIDERS: Internal Medicine
DX: E03.9 Hypothyroidism, unspecified (principal); E11.59 Type 2 diabetes mellitus with other circulatory complications